=== PATIENT | male | born 1965 | race Hispanic/Latino ===

== ENCOUNTER → 2020-03-06 | Day surgery (SDC) | payer BC ==
[~2020-03-06] MED LIST: ALLOPURINOL300 MG PO; AMLODIPINE10 MG PO; AUGMENTIN875TAB OR; BOOSTRIX IM; HYDROCHLOROT25 MG PO; KEFLEX500 MG PO; LISINOP/HCTZ1 TA1 PO; LISINOP/HCTZ1 TA2 PO; LISINOPRIL20 MG PO; LISINOPRIL30 MG PO; LOVASTATIN20 M1 PO; PERCOCET 5/325M1 TAB PO; ZESTRIL30 MG PO
[2020-03-06 13:30] VITALS: BP 132/82
--- NOTE | 2020-03-07 14:29 | NUR ---
PATIENT REGARDING SOME QUESTIONS AFTER SURGERY. PER DR LAUGHLIN I EXPLAINED TO THE PATIENT THAT THE PUFFY STOMACH IS DUE TO HAVING LAPAROSCOPIC SURGERY. ALSO THAT HIS TESTICLE BEING SWOLLEN IS NORMAL AFTER SURGERY. ADVISED PATIENT TO DRINK FLUIDS AND MOVE AROUND. IF HE CONTINUES TO HAVE ISSUES URINATING TO GO TO THE ER TO BE EXAMINED. ADVISED PATIENT TO USE MIRALAX FOR BOWEL MOVEMENTS. PATIENT STATED HE UNDERSTOOD.
== END | disposition home or self-care (01) | DRG 352 ==
LOC: ORM 09:12
PROVIDERS: ATTEND Surgery
PROC: 0YUA4JZ Supplement Bilateral Inguinal Region with Synthetic Substitute, Percutaneous Endoscopic Approach (ICD-10-PCS; principal; 2020-03-06)
PROC: 0VBF4ZZ Excision of Right Spermatic Cord, Percutaneous Endoscopic Approach (ICD-10-PCS; 2020-03-06)
DX: K40.90 Unilateral inguinal hernia, without obstruction or gangrene, not specified as recurrent (principal); D17.6 Benign lipomatous neoplasm of spermatic cord; Z20.828 Contact with and (suspected) exposure to other viral communicable diseases
CPT/HCPCS: C1781; J0131; J1100

== ENCOUNTER 2020-03-11 18:33 | Emergency (ER) | payer BC ==
[~2020-03-11] VITALS: Ht 175.3 cm; Wt 96.0 kg
[2020-03-11 19:26] LABS: URINE BILIRUBIN - DIPSTICK NEGATIVE (NEGATIVE); URINE BLOOD DIPSTICK NEGATIVE (NEGATIVE); URINE COLOR YELLOW; URINE GLUCOSE - DIPSTICK NEGATIVE (NEGATIVE); URINE KETONE NEGATIVE (NEGATIVE); URINE LEUK ESTERASE NEGATIVE (NEGATIVE); URINE NITRITE - DIPSTICK NEGATIVE (Negative); URINE PROTEIN - DIPSTICK NEGATIVE (NEG-TRACE); URINE SPECIFIC GRAVITY 1.015; URINE UROBILINOGEN - DIPSTICK 0.2 E.U./dL (0.2)
[2020-03-11 19:28] LABS: IMMATURE GRANULOCYTES 1.1 % (0.0-5.0); MEAN CORPUSCULAR HGB 33.5 pG CALC (26.0-32.0); MEAN CORPUSCULAR HGB CONC 33.4 g/dL CAL (32.0-36.0); NEUT# 10.5 thou/uL (1.82-7.42); RED BLOOD COUNT 3.34 mill/uL (4.70-6.10); RED CELL DISTRI WIDTH 12.2 % (11.5-15.5)
[2020-03-11 19:29] LABS: HEMATOCRIT 33.5 % (39.0-50.0); HEMOGLOBIN 11.2 g/dl (14.0-18.0); MEAN CELL VOLUME 100.3 fL CALC (80.0-100.0)
[2020-03-11 19:39] LABS: ALBUMIN 3.9 g/dL (3.2-5.0); ANION GAP 10 (6-22 (CALC)); BUN 17 mg/dL (9-20); BUN/CREATININE RATIO 16 (12-20 (CALC)); CARBON DIOXIDE 29 mmol/l (22-30); CHLORIDE 100 mmol/l (95-108); CREATININE 1.1 mg/dL (0.7-1.3); GFR > 60 ML/MIN (>=60 (CALC)); GFR FOR AFR.AMER. > 60 ML/MIN (>=60 (CALC)); LIPASE 317 u/l (23-300); POTASSIUM 4.2 mmol/l (3.5-5.1); SGOT/AST 34 u/l (17-59); SODIUM 135 mmol/l (137-146); TOTAL PROTEIN 6.7 g/dL (6.3-8.2)
[2020-03-11 19:40] LABS: ALKALINE PHOSPHATASE 160 u/l (38-126); BILIRUBIN, TOTAL 1.4 mg/dL (0.0-1.4)
[2020-03-11] MEDS ORDERED: AUGMENTIN500TAB PO (22:03)
[2020-03-11 22:20] VITALS: BP 104/65
== END 2020-03-11 22:20 | disposition left against medical advice (07) | DRG 392 ==
LOC: ED 18:33 → ED-I 18:48 → ED 18:48 → ED-I 20:20 → ED 22:20
PROVIDERS: Family Medicine
DX: R10.31 Right lower quadrant pain (principal); R10.32 Left lower quadrant pain; R50.9 Fever, unspecified; R00.0 Tachycardia, unspecified; Z98.890 Other specified postprocedural states; Z91.19 Patient's noncompliance with other medical treatment and regimen
CPT/HCPCS: Q9967

== ENCOUNTER 2020-07-03 05:23 | Emergency (ER) | payer BC ==
[~2020-07-03] VITALS: Ht 175.3 cm; Wt 101.0 kg
[~2020-07-03 05:23] MED LIST changes: +AUGMENTIN500TAB PO
[2020-07-03 06:34] LABS: IMMATURE GRANULOCYTES 0.4 % (0.0-5.0); MEAN CELL VOLUME 94.5 fL CALC (80.0-100.0); MEAN CORPUSCULAR HGB 31.9 pG CALC (26.0-32.0); MEAN CORPUSCULAR HGB CONC 33.8 g/dL CAL (32.0-36.0); NEUT# 5.44 thou/uL (1.82-7.42); RED BLOOD COUNT 4.89 mill/uL (4.70-6.10)
[2020-07-03 06:35] LABS: HEMATOCRIT 46.2 % (39.0-50.0); HEMOGLOBIN 15.6 g/dl (14.0-18.0)
[2020-07-03] MEDS ORDERED: COLACE100 MG PO ×2 (06:39→10:15)
[2020-07-03] MEDS ORDERED: ANUCORT-HC25 MG RE ×2 (06:39→10:15)
[2020-07-03 07:02] LABS: ACT PARTIAL THROMBO TIME 24.7 SECONDS (20.0-32.5); PROTHROMBIN TIME 9.7 SECONDS (9.0-12.5)
[2020-07-03 07:03] LABS: ALBUMIN 4.1 g/dL (3.2-5.0); ALKALINE PHOSPHATASE 136 u/l (38-126); ANION GAP 14 (6-22 (CALC)); BUN 13 mg/dL (9-20); BUN/CREATININE RATIO 17 (12-20 (CALC)); CARBON DIOXIDE 28 mmol/l (22-30); CHLORIDE 100 mmol/l (95-108); CREATININE 0.8 mg/dL (0.7-1.3); GFR > 60 ML/MIN (>=60 (CALC)); GFR FOR AFR.AMER. > 60 ML/MIN (>=60 (CALC)); POTASSIUM 3.5 mmol/l (3.5-5.1); SGOT/AST 45 u/l (17-59); SODIUM 138 mmol/l (137-146)
[2020-07-03 07:22] VITALS: BP 183/97
[2020-07-03 07:23] LABS: BILIRUBIN, TOTAL 0.8 mg/dL (0.0-1.4)
== END 2020-07-03 07:30 | disposition home or self-care (01) | DRG 395 ==
LOC: ED 05:23
DX: K64.4 Residual hemorrhoidal skin tags (principal); I10 Essential (primary) hypertension

== ENCOUNTER 2021-01-10 19:03 | Emergency (ER) | payer BC ==
[~2021-01-10] VITALS: Ht 175.3 cm; Wt 94.0 kg
[~2021-01-10 19:03] MED LIST changes: +ANUCORT-HC25 MG RE; +COLACE100 MG PO
[2021-01-10] MEDS ORDERED: ZESTORETIC1 TA1 PO (20:28)
[2021-01-10] MEDS ORDERED: IBUPROFEN600 MG PO (21:44)
[2021-01-10] MEDS ORDERED: ORPHENADRINE100 MG PO (21:44)
[2021-01-10 22:21] VITALS: BP 138/86
== END 2021-01-10 22:21 | disposition home or self-care (01) | DRG 552 ==
LOC: ED 19:03
DX: M54.5 Low back pain (principal); I10 Essential (primary) hypertension

== ENCOUNTER 2023-12-26 10:27 | Emergency (ER) | payer OTHER ==
[2023-12-26] VITALS (15 sets, daily range): BP systolic 145–186; BP diastolic 66–98
[~2023-12-26] VITALS: Ht 175.3 cm; Wt 95.2 kg
[~2023-12-26 10:27] MED LIST changes: +IBUPROFEN600 MG PO; +ORPHENADRINE100 MG PO; +ZESTORETIC1 TA1 PO
[2023-12-26] MEDS ORDERED: MUPIROCIN21 TOP (14:08)
[2023-12-26] MEDS ORDERED: CEPHALEXIN500 M1 PO (14:08)
== END 2023-12-26 14:18 | disposition home or self-care (01) | DRG 605 ==
LOC: ED 10:27
DX: S80.812A Abrasion, left lower leg, initial encounter (principal); S00.01XA Abrasion of scalp, initial encounter; W20.8XXA Other cause of strike by thrown, projected or falling object, initial encounter

== ENCOUNTER 2024-02-15 20:44 | Emergency (ER) | payer OTHER ==
[~2024-02-15] VITALS: Ht 175.3 cm; Wt 105.0 kg
[2024-02-15] VITALS (9 sets, daily range): BP systolic 87–201; BP diastolic 55–110
[~2024-02-15 20:44] MED LIST changes: +CEPHALEXIN500 M1 PO; +MUPIROCIN21 TOP
[2024-02-15] MEDS ORDERED: HALOPERIDOL LACTATE 5 MG/ML SDV IV ONE (21:00)
[2024-02-15] MEDS ORDERED: diazePAM 10 MG/2 ML VIAL IV ONE (21:05)
[2024-02-15 21:09] LABS: BASO% 0.3 % (0-3); EOS% 1.2 % (0-8); HEMATOCRIT 49.5 % (39.0-50.0); HEMOGLOBIN 16.5 g/dl (14.0-18.0); IMMATURE GRANULOCYTES 0.2 % (0.0-5.0); LYMPH% 11.1 % (15-41); MEAN CELL VOLUME 97.4 fL CALC (80.0-100.0); MEAN CORPUSCULAR HGB 32.5 pG CALC (26.0-32.0); MEAN CORPUSCULAR HGB CONC 33.3 g/dL CAL (32.0-36.0); MONO% 9.9 % (2-13); NEUT# 10.6 thou/uL (1.82-7.42); NEUT% 77.3 % (42-76); RED BLOOD COUNT 5.08 mill/uL (4.70-6.10); RED CELL DISTRI WIDTH 11.6 % (11.5-15.5)
[2024-02-15] MEDS ORDERED: SODIUM CHLORIDE 0.9% 1,000 ML IV ONE (21:20)
[2024-02-15] MEDS ORDERED: LABETALOL HCL 20 MG/ 4 ML CARTRG IV ONE (21:20)
[2024-02-15 21:23] LABS: ALBUMIN 4.7 g/dL (3.2-5.0); ALKALINE PHOSPHATASE 84 u/l (38-126); ANION GAP 15 (6-22 (CALC)); BILIRUBIN, TOTAL 0.9 mg/dL (0.2-1.3); BUN 21 mg/dL (9-20); BUN/CREATININE RATIO 13 (12-20 (CALC)); CARBON DIOXIDE 29 mmol/l (22-30); CHLORIDE 104 mmol/l (95-108); CREATININE 1.6 mg/dL (0.7-1.3); ESTIMATED GFR 49 ML/MIN (>=90 (CALC)); ETHYL ALCOHOL 0 mg/dl (0-30); MAGNESIUM 2.1 mg/dL (1.6-2.3); POTASSIUM 4.5 mmol/l (3.5-5.1); SGOT/AST 39 u/l (17-59); SODIUM 143 mmol/l (137-146); TOTAL PROTEIN 8.7 g/dL (6.3-8.2)
[2024-02-15 21:39] LABS: URINE BLOOD DIPSTICK Negative (NEGATIVE); URINE GLUCOSE - DIPSTICK Negative (NEGATIVE); URINE KETONE 15 mg/dL (NEGATIVE); URINE LEUK ESTERASE Negative (NEGATIVE); URINE NITRITE - DIPSTICK Negative (Negative); URINE PH 5.5 (4.5-8.0); URINE PROTEIN - DIPSTICK 100 mg/dL (NEG-TRACE)
[2024-02-15 21:42] LABS: URINE COLOR Dark yellow
[2024-02-15 21:46] LABS: URINE AMORPH SEDIMENT FEW hpf (NONE-FER); URINE RBC 0-2 RBC/hpf (0-5)
[2024-02-15 21:47] LABS: URINE SQUAMOUS EPITHELIAL CELL FEW EPI/hpf (0-FEW)
[2024-02-15 21:48] LABS: URINE MUCUS FEW hpf (NONE-FEW)
[2024-02-15 21:51] LABS: URINE HYALINE CAST FEW lpf (NONE-RARE)
[2024-02-15 21:52] LABS: URINE BACTERIA RARE hpf
[2024-02-16 00:15] VITALS: BP 98/59
== END 2024-02-16 00:15 | DRG 897 ==
LOC: ED 20:44
PROVIDERS: Family Medicine
DX: F14.151 Cocaine abuse with cocaine-induced psychotic disorder with hallucinations (principal); I10 Essential (primary) hypertension; Z20.822 Contact with and (suspected) exposure to COVID-19